=== PATIENT | male | born 1945 | race Native Hawaiian/Other Pacific Islander ===

== ENCOUNTER 2016-07-22 13:36 | Emergency (ER) | payer OTHER ==
[~2016-07-22] VITALS: Ht 175.3 cm; Wt 88.5 kg
== END 2016-07-22 15:20 | disposition home or self-care (01) ==
LOC: ED 13:36
PROC: 2W3JX1Z Immobilization of Right Finger using Splint (ICD-10-PCS; principal; 2016-07-22)
DX: S61.312A Laceration without foreign body of right middle finger with damage to nail, initial encounter (principal); S62.662B Nondisplaced fracture of distal phalanx of right middle finger, initial encounter for open fracture; W29.8XXA Contact with other powered hand tools and household machinery, initial encounter; Y92.098 Other place in other non-institutional residence as the place of occurrence of the external cause
CPT/HCPCS: 90715; 96372; 99283; J2175; J2550; J7040

== ENCOUNTER 2017-02-09 12:38 | Emergency (ER) | payer OTHER ==
[~2017-02-09] VITALS: Ht 175.3 cm; Wt 86.2 kg
[2017-02-09 12:35] VITALS: TEMP 98.1
[2017-02-09 13:40] VITALS: BP 130/72
== END 2017-02-09 13:40 | disposition short-term general hospital (02) ==
LOC: ED 12:38
DX: S68.113A Complete traumatic metacarpophalangeal amputation of left middle finger, initial encounter (principal); S68.115A Complete traumatic metacarpophalangeal amputation of left ring finger, initial encounter; S68.117A Complete traumatic metacarpophalangeal amputation of left little finger, initial encounter; W29.8XXA Contact with other powered hand tools and household machinery, initial encounter; Y92.89 Other specified places as the place of occurrence of the external cause
CPT/HCPCS: 90471; 90715; 96365; 96375; 99285; J0696; J1170; J2550

== ENCOUNTER 2020-06-09 07:54 | Outpatient (CLI) | payer OTHER | END 2020-06-09 22:03 | disposition home or self-care (01) | LOC: INF 07:54 | PROVIDERS: ATTEND Internal Medicine | DX: Z23 Encounter for immunization (principal) | CPT/HCPCS: 96372 ==

== ENCOUNTER 2020-07-01 07:57 | Outpatient (CLI) | payer OTHER | END 2020-07-01 22:10 | disposition home or self-care (01) | LOC: INF 07:57 | PROVIDERS: ATTEND Internal Medicine | DX: Z23 Encounter for immunization (principal) | CPT/HCPCS: 96372 ==

== ENCOUNTER 2021-10-20 18:23 | Emergency (ER) | payer OTHER ==
[~2021-10-20] VITALS: Ht 175.3 cm; Wt 80.7 kg
[2021-10-20 19:10] VITALS: BP 132/80; TEMP 98.2
[2021-10-20] MEDS ORDERED: SULFACET SOD10 % OPTH (19:10)
== END 2021-10-20 19:10 | disposition home or self-care (01) ==
LOC: ED 18:23
DX: H10.89 Other conjunctivitis (principal); S05.02XA Injury of conjunctiva and corneal abrasion without foreign body, left eye, initial encounter; X58.XXXA Exposure to other specified factors, initial encounter; Y92.89 Other specified places as the place of occurrence of the external cause
CPT/HCPCS: 99283